=== PATIENT | male | born 1995 | race American Indian/Alaskan Native ===

== ENCOUNTER 2017-05-01 00:33 | Emergency (ER) | payer BC ==
[2017-05-01] MEDS ORDERED: TYLENOL ONE (01:09)
[2017-05-01] MEDS ORDERED: TYLENOL PO ONE (01:09)
--- NOTE | 2017-05-01 03:35 | Emergency Department Report ---
Upper Extremity - HPI Chief Complaint: Extremity Injury, Upper Stated Complaint: LEFT ELBOW INJURY Time Seen by Provider: 05/01/17 03:01 Upper Extremity: Left Elbow Occurred When: Today (5 hours ago) Mechanism: Fall Symptoms: Yes Pain with Movement, Yes Limited Range of Movement (limited left elbow flexion), Yes Swelling, No Deformity, No Numbness, No Weakness, No Bruising/Ecchymosis, No Laceration or Abrasion Other History: Patient comes into the ER today with complaints of left elbow pain after having an accident while on his skateboard. Patient states that he fell and landed on his left elbow. Patient denies any back pain, neck pain, head injury, loss of consciousness, bleeding. Patient states that initially he was in a lot of pain for a few minutes and now most the pain is with rotation of his forearm and full flexion of his left elbow. Patient denies any numbness , tingling, loss of sensation. Patient denies any other extremity complaints. ED Review of Systems ROS: Stated complaint: LEFT ELBOW INJURY Other details as noted in HPI Constitutional: denies: chills, fever Eyes: denies: eye pain, eye discharge, vision change ENT: denies: ear pain, throat pain Respiratory: denies: cough, shortness of breath, wheezing Cardiovascular: denies: chest pain, palpitations Endocrine: no symptoms reported Gastrointestinal: denies: abdominal pain, nausea, diarrhea Genitourinary: denies: urgency, dysuria Musculoskeletal: joint swelling, arthralgia. denies: back pain Skin: denies: rash, lesions Neurological: denies: headache, weakness, paresthesias Psychiatric: denies: anxiety, depression Hematological/Lymphatic: denies: easy bleeding, easy bruising ED Past Medical Hx - Past Medical History Previous Medical History?: No - Surgical History Past Surgical History?: No - Social History Smoking Status: Never Smoker Substance Use Type: None - Medications Home Medications: Home Medications Medication Instructions Recorded Confirmed Last Taken Type Acetaminophen/Codeine [Tylenol 1 tab PO Q6H PRN #20 tab 05/01/17 Unknown Rx /Codeine # 3 tab] Naproxen [Naprosyn TAB] 500 mg PO BID #14 tablet 05/01/17 Unknown Rx Upper Extremity Exam - Exam General: Vital signs noted. No distress. Alert and acting appropriately. Head and Torso: No HEENT Abnormality, No Neck Tenderness, No Chest/Lungs Abnormality, No Abdominal Tenderness, No Back Tenderness Shoulder Exam: Yes Normal Range of Motion in Shoulder, No Shoulder Tenderness, No Clavicle Tenderness, No Shoulder Deformity, No AC Joint Tenderness Arm Exam: No Arm/Humerus Tenderness, No Arm Deformity Elbow: Yes Elbow Tenderness (mild left radial head tenderness), No Normal Range of Motion in Elbow (Limited range of motion of left elbow secondary to pain), No Elbow Deformity (posterior left elbow soft tissue swelling.) Forearm: Yes Pain with Pronation (left), Yes Pain with Supination (left), No Forearm Tenderness, No Forearm Deformity Wrist: Yes Normal ROM in Wrist, No Wrist Tenderness, No Wrist Deformity, No Snuffbox Tenderness, No Pain with Axial Thumb Compression Hand: Yes Normal ROM in Digit(s), No Hand Tenderness, No Hand Deformity, No Digit Tenderness, No Digit(s) Deformity, No Tendon Dysfunction CMS Exam: Yes Normal Distal Pulses, Yes Normal Capillary Refill, Yes Normal Distal Sensation, No Broken Skin ED Course Vital Signs 05/01/17 01:00 Temperature 98.6 F Pulse Rate 95 H Respiratory 18 Rate Blood Pressure 129/78 [Right] O2 Sat by Pulse 100 Oximetry ED Medical Decision Making - Radiology Data Radiology results: image reviewed interpreted by me: X-ray left elbow: Anterior fat pad sign with nondisplaced radial head fracture noted. No dislocation or misalignment noted. - Medical Decision Making Patient is nontoxic and hemodynamically stable. X-ray results reviewed and discussed the patient family in room. Patient placed in a left sugar tong arm splint as well as sling here in the ER. Patient is neurovascularly intact after splint placement. I will refer patient to orthopedics for further evaluation and cast placement. I have instructed patient to leave splint on until seen and evaluated by orthopedics. Patient family are in agreement with treatment plan and patient is stable for discharge. Critical care attestation.: If time is entered above; I have spent that time in minutes in the direct care of this critically ill patient, excluding procedure time. ED Disposition Clinical Impression: Fracture of radial head, left, closed, Contusion of left elbow Disposition: -01 TO HOME OR SELFCARE Is pt being admited?: No Does the pt Need Aspirin: No Condition: Good Instructions: Elbow Fracture in Adults (ED) Prescriptions: Acetaminophen/Codeine [Tylenol /Codeine # 3 tab] 1 tab PO Q6H PRN #20 tab PRN Reason: Pain Naproxen [Naprosyn TAB] 500 mg PO BID #14 tablet Referrals: PRIMARY CARE, [Primary Care Provider] - 3-5 Days NAILA GRIFFITHS MD [Staff Physician] - 3-5 Days Time of Disposition: 03:37
[2017-05-01 04:33] VITALS: BP 139/83
--- NOTE | 2017-05-01 09:19 | XRay Report ---
Left elbow 3 views: History: Fall, pain. Findings: No definite fracture or dislocation noted. Evidence of joint effusion. Impression: In the presence of joint effusion, an occult fracture if present, cannot be entirely excluded however no obvious fracture is identified.
== END 2017-05-01 04:33 | disposition home or self-care (01) ==
LOC: ED 00:33
DX: S52.122A Displaced fracture of head of left radius, initial encounter for closed fracture (principal); S50.02XA Contusion of left elbow, initial encounter; V00.131A Fall from skateboard, initial encounter; Y93.89 Activity, other specified; Y99.9 Unspecified external cause status; Y92.89 Other specified places as the place of occurrence of the external cause

== ENCOUNTER 2017-05-01 22:20 | Emergency (ER) | payer BC ==
--- NOTE | 2017-05-01 23:26 | Emergency Department Report ---
ED Lower Extremity HPI - General Chief Complaint: Extremity Injury, Lower Stated Complaint: LT ANKLE PAIN Time Seen by Provider: 05/01/17 22:50 Source: patient Mode of arrival: Ambulatory Limitations: No Limitations - History of Present Illness Initial Comments: Patient comes into the ER today with complaints of left ankle pain after having a skateboarding accident yesterday. Patient was seen here in this ER by myself yesterday and was complaining of left elbow pain. With time, patient has started noticing that his left ankle has been hurting as well. Patient states the pain is not Nestl worse with standing but when he fully plantar flexes his ankle, he has discomfort on anterior surface of left ankle. Patient has been wearing a ankle brace today with some relief in symptoms. Patient came in to make sure nothing was broken. MD Complaint: ankle injury -: days(s) (1) - Related Data Previous Rx's Medication Instructions Recorded Last Taken Type Acetaminophen/Codeine [Tylenol 1 tab PO Q6H PRN #20 tab 05/01/17 Unknown Rx /Codeine # 3 tab] Naproxen [Naprosyn TAB] 500 mg PO BID #14 tablet 05/01/17 Unknown Rx Allergies Allergy/AdvReac Type Severity Reaction Status Date / Time No Known Allergies Allergy Verified 05/01/17 01:09 ED Review of Systems ROS: Stated complaint: LT ANKLE PAIN Other details as noted in HPI Constitutional: denies: chills, fever Eyes: denies: eye pain, eye discharge, vision change ENT: denies: ear pain, throat pain Respiratory: denies: cough, shortness of breath, wheezing Cardiovascular: denies: chest pain, palpitations Endocrine: no symptoms reported Gastrointestinal: denies: abdominal pain, nausea, diarrhea Genitourinary: denies: urgency, dysuria Musculoskeletal: joint swelling, arthralgia. denies: back pain Skin: denies: rash, lesions Neurological: denies: headache, weakness, paresthesias Psychiatric: denies: anxiety, depression Hematological/Lymphatic: denies: easy bleeding, easy bruising ED Past Medical Hx - Past Medical History Previous Medical History?: No - Surgical History Past Surgical History?: No - Social History Smoking Status: Never Smoker Substance Use Type: None - Medications Home Medications: Home Medications Medication Instructions Recorded Confirmed Last Taken Type Acetaminophen/Codeine [Tylenol 1 tab PO Q6H PRN #20 tab 05/01/17 Unknown Rx /Codeine # 3 tab] Naproxen [Naprosyn TAB] 500 mg PO BID #14 tablet 05/01/17 Unknown Rx ED Physical Exam - General Limitations: No Limitations General appearance: alert, in no apparent distress - Head Head exam: Present: atraumatic, normocephalic - Eye Eye exam: Present: normal appearance - ENT ENT exam: Present: mucous membranes moist - Neck Neck exam: Present: normal inspection - Respiratory Respiratory exam: Present: normal lung sounds bilaterally. Absent: respiratory distress - Cardiovascular Cardiovascular Exam: Present: regular rate, normal rhythm. Absent: systolic murmur, diastolic murmur, rubs, gallop - GI/Abdominal GI/Abdominal exam: Present: soft, normal bowel sounds - Rectal Rectal exam: Present: deferred - Extremities Exam Extremities exam: Present: full ROM (pain reproduced with full plantar flexion) , tenderness (anterior left ankle tenderness), normal capillary refill, joint swelling (light left lateral malleoli and anterior ankle swelling), other (left arm in sling and sugar tong splint from visit yesterday.). Absent: pedal edema , calf tenderness - Back Exam Back exam: Present: normal inspection. Absent: tenderness - Neurological Exam Neurological exam: Present: alert, oriented X3 - Psychiatric Psychiatric exam: Present: normal affect, normal mood - Skin Skin exam: Present: warm, dry, intact, normal color. Absent: rash ED Course Vital Signs 05/01/17 22:31 Temperature 98.3 F Pulse Rate 62 Respiratory 18 Rate Blood Pressure 123/78 O2 Sat by Pulse 100 Oximetry ED Lower Extremity MDM - Radiology Data Radiology results: image reviewed interpreted by me: X-ray left ankle: No acute bone pathology, no dislocation, no fracture. - Medical Decision Making Patient is nontoxic and hemodynamically stable. X-ray results review discuss the patient family. I informed them that there is no fracture noted in encourage patient to continue wearing ankle brace that he already has. He is to still follow up with previously referred to orthopedic for left elbow fracture. Patient family are in agreement treatment plans and patient is stable for discharge. Critical care attestation.: If time is entered above; I have spent that time in minutes in the direct care of this critically ill patient, excluding procedure time. ED Disposition Clinical Impression: Left ankle sprain Disposition: DC-01 TO HOME OR SELFCARE Is pt being admited?: No Does the pt Need Aspirin: No Condition: Good Instructions: Ankle Sprain (ED) Referrals: PRIMARY CAREMD [Primary Care Provider] - 3-5 Days NAILA GRIFFITHS MD [Staff Physician] - 3-5 Days Time of Disposition: 23:59
[2017-05-02 00:15] VITALS: BP 117/74
--- NOTE | 2017-05-02 08:16 | XRay Report ---
LEFT ANKLE THREE VIEWS: 05/01/17 22:20:00 CLINICAL: Skateboarding accident. Pain. FINDINGS: The ankle mortise is intact. No fracture or dislocation. Mild lateral soft tissue swelling . No soft tissue air or foreign body. IMPRESSION: Soft tissue injury and otherwise negative.
== END 2017-05-02 00:15 | disposition home or self-care (01) ==
LOC: ED 22:20
DX: S93.402A Sprain of unspecified ligament of left ankle, initial encounter (principal); X58.XXXA Exposure to other specified factors, initial encounter; Y93.51 Activity, roller skating (inline) and skateboarding; Y92.89 Other specified places as the place of occurrence of the external cause; Y99.8 Other external cause status
CPT/HCPCS: 99283

== ENCOUNTER 2017-10-04 15:38 | Emergency (ER) | payer BC ==
[2017-10-04 16:47] LABS: Hematocrit 49.5 % (35.5-45.6); Hemoglobin 16.2 gm/dl (11.8-15.2); Mean Corpuscular HGB Conc 33 % (32-34); Mean Corpuscular Hemoglobin 29 pg (28-32); Mean Corpuscular Volume 88 fl (84-94); Platelet Count 273 K/mm3 (140-440); Red Cell Distribution Width 13.3 % (13.2-15.2); White Blood Count 15.1 K/mm3 (4.5-11.0)
[2017-10-04] MEDS ORDERED: ZOFRAN ODT PO ONE ×2 (16:51→16:52)
--- NOTE | 2017-10-04 16:51 | Emergency Department Report ---
Chief Complaint: Nausea/Vomiting/Diarrhea Stated Complaint: FLU LIKE SYMPTOMS Time Seen by Provider: 10/04/17 16:50 - HPI History of Present Illness: Patient he reports that he has been having nausea vomiting and diarrhea that started this morning. He said he vomited 3 times today and also had diarrhea continuously throughout the day. He said he is not able to keep anything down. Denies any abdominal or back pain. Denies any urinary burning frequency or urgency. Patient does not have any medical problems. Patient denies any abdominal pain or pain. Pain is 0-10 at present. Patient reports that he ate a burrito last night at work and a monster drink. Denies any blood in diarrhea. - ROS Review of Systems: All systems are negative unless stated in HPI above - Exam Vital Signs: Vital Signs 10/04/17 15:48 Temperature 98.3 F Pulse Rate 70 Respiratory 16 Rate Blood Pressure 111/68 O2 Sat by Pulse 100 Oximetry Physical Exam: Gen.: This is a 22-year-old male well-nourished well-developed and nontoxic in appearance Abdomen: Soft, flat, nontender to palpate in all quadrants. Normal bowel sounds in all quadrants. Mouth: Dry, no oropharyngeal erythema or exudate. 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 Tongue is normal. Uvula is midline and oral airways patent MSE screening note: Focused history and physical exam performed. Due to findings the following was ordered:Patient given Zofran 8 mg ODT in triage area for nausea. ED Medical Decision Making - Lab Data Result diagrams: 10/04/17 16:08 - Medical Decision Making MDM: Patient screened by provider in triage area. Appropriate protocol initiated and patient to be seen in main ED by ED Disposition for MSE Condition: Stable Referrals: PRIMARY CARE, [Primary Care Provider] - 3-5 Days
[2017-10-04] MEDS ORDERED: ZOFRAN ODT ONE (16:52)
[2017-10-04 16:55] LABS: Anion Gap 21 mmol/L; BUN/Creatinine Ratio 23; Blood Urea Nitrogen 21 mg/dL (9-20); Calcium 10.1 mg/dL (8.4-10.2); Carbon Dioxide 24 mmol/L (22-30); Chloride 98.3 mmol/L (98-107); Glucose 135 mg/dL (75-100); Potassium 4.5 mmol/L (3.6-5.0); Sodium 139 mmol/L (137-145)
[2017-10-04 17:52] LABS: Basophils % (Manual) 0 % (0.0-1.8); Blastocytes % (Manual) 0 %; Eosinophils % (Manual) 0 % (0.0-4.3)
[2017-10-04 17:53] LABS: Diff Status Complete; Large Platelets 1+; Platelet Estimate Consistent w Auto; RBC Morphology Normal
[2017-10-05 00:03] VITALS: BP 149/82
== END 2017-10-05 04:10 | disposition left against medical advice (07) ==
LOC: ED 15:38
DX: J11.1 Influenza due to unidentified influenza virus with other respiratory manifestations (principal); Z53.21 Procedure and treatment not carried out due to patient leaving prior to being seen by health care provider
CPT/HCPCS: 36415; 80048; 83690; 85007; 85025; Q0162